=== PATIENT | male | born 1995 | race Caucasian/White ===

== ENCOUNTER 2018-01-21 17:39 | Emergency (ER) | payer SELFPAY ==
[~2018-01-21] VITALS: Ht 170.2 cm; Wt 61.2 kg
[2018-01-21 17:50] VITALS: BP_SYST 138
[2018-01-21 18:38] VITALS: BP_SYST 130
== END 2018-01-21 18:38 | disposition home or self-care (01) ==
LOC: SED 17:39
DX: S05.02XA Injury of conjunctiva and corneal abrasion without foreign body, left eye, initial encounter (principal); R03.0 Elevated blood-pressure reading, without diagnosis of hypertension; W22.8XXA Striking against or struck by other objects, initial encounter; Y93.89 Activity, other specified; Y92.89 Other specified places as the place of occurrence of the external cause; Y99.8 Other external cause status
CPT/HCPCS: 99283